=== PATIENT | female | born 1945 | race Caucasian/White ===

== ENCOUNTER 2018-05-25 23:30 | Emergency (ER) | payer SELFPAY ==
[~2018-05-25] VITALS: Ht 162.6 cm; Wt 66.7 kg
[2018-05-25 23:53] VITALS: Ht 162.6 cm; Wt 66.7 kg
[2018-05-26 01:18] LABS: BASOPHIL % 0.3 % (0-2); PLATELET COUNT 257 x10^3mcL (130-400); RED CELL DISTRIBUTION WIDTH 14.4 % (11.5-14.5)
[2018-05-26 01:31] LABS: CALCIUM 9.5 mg/dL (8.5-10.1); CARBON DIOXIDE 25.4 mmol/L (21-32); CHLORIDE SERUM 98 mmol/L (98-107); CREATININE SERUM 1.2 mg/dL (0.6-1.0); GLUCOSE SERUM 375 mg/dL (74-106); POTASSIUM SERUM 4.4 mmol/L (3.5-5.1); SODIUM SERUM 133 mmol/L (136-145)
[2018-05-26 01:42] LABS: ALKALINE PHOSPHATASE 150 U/L (46-116); ALT/SGPT 21 U/L (14-59); AST/SGOT 30 U/L (15-37); BILIRUBIN TOTAL 0.31 mg/dL (0.20-1.00); C REACTIVE PROTEIN 7.6 mg/dL (<=0.9); TOTAL PROTEIN, SERUM 7.6 g/dL (6.4-8.2)
[2018-05-26 01:47] LABS: FREE T4 1.28 ng/dL (0.76-1.46); FREE THYROXINE INDEX 3.4 ug/dL (1.4-4.5); T4(THYROXINE) 9.9 ug/dL (4.7-13.3)
[2018-05-26 01:48] LABS: ALBUMIN 3.2 g/dL (3.4-5.0)
[2018-05-26 01:58] LABS: CK-MB 2.2 ng/mL (0-3.6)
[2018-05-26 02:02] LABS: microscopic required? YES; urine erythrocyte TRACE (NEGATIVE)
[2018-05-26 02:29] LABS: ERYTHROCYTE SED RATE 58 mm/hr (0-30)
[2018-05-26 03:02] LABS: T3 TOTAL 1.3 ng/mL
[2018-05-26 03:12] VITALS: BP 131/84
== END 2018-05-26 04:10 | disposition home or self-care (01) ==
LOC: ED 23:30
PROVIDERS: Specialist
DX: E11.65 Type 2 diabetes mellitus with hyperglycemia (principal); R35.0 Frequency of micturition; E78.00 Pure hypercholesterolemia, unspecified; Z85.3 Personal history of malignant neoplasm of breast
CPT/HCPCS: 36600; 82962; 84439; J1815; J7030; J7040; Q0092